=== PATIENT | female | born 1980 | race Caucasian/White ===

== ENCOUNTER 2016-12-23 18:40 | Emergency (ER) | payer BC ==
[2016-12-23] MEDS ORDERED: LORazepam 0.5 MG Tab PO ONE (19:10)
--- NOTE | 2016-12-23 19:16 | EDM.PDOC ---
ED HPI GENERAL MEDICAL PROBLEM - General Chief Complaint: Chest Pain Stated Complaint: anxiety, chest pain Time Seen by Provider: 12/23/16 18:56 Source of Information: Reports: Patient History Limitations: Reports: No Limitations - History of Present Illness INITIAL COMMENTS - FREE TEXT/NARRATIVE: Patient presents with anxiety. She feels like she could go into a panic attack. She has been feeling anxious for the last four days. Three nights ago she had a panic attack. The next day she went to see her PCP and was started on Sertraline. She had been on Sertraline successfully for post- depression previously. She hasn't had a panic attack in about a year but says this is just like back then. She had some chest pain off and on with the anxiety over the past couple days but not now. This does concern her some though as she wonders if she could be having a heart attack. A little nausea but no vomiting; appetite is very decreased with her anxiety. 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 Denies: Fever, Chills HEENT: Reports: No Symptoms Respiratory: Denies: Shortness of Breath, Cough Cardiovascular: Denies: Chest Pain (not currently), Syncope GI/Abdominal: Reports: Nausea. Denies: Abdominal Pain, Vomiting : Denies: Dysuria, Frequency Musculoskeletal: Reports: No Symptoms Skin: Denies: Cyanosis, Jaundice, Mottled, Pallor, Diaphoresis Neurological: Denies: Confusion, Dizziness, Seizure, Syncope, Trouble Speaking, Difficulty Walking Psychiatric: Reports: Anxiety. Denies: Agitation, Confusion ED EXAM, GENERAL - Physical Exam Exam: See Below Exam Limited By: No Limitations General Appearance: Alert, WD/WN, No Apparent Distress Eye Exam: Bilateral Eye: EOMI, Normal Inspection, PERRL Ears: Normal External Exam, Hearing Grossly Normal Nose: Normal Inspection, No Blood Throat/Mouth: Normal Inspection, Normal Lips, Normal Voice, No Airway Compromise Head: Atraumatic, Normocephalic Neck: Normal Inspection, Full Range of Motion Respiratory/Chest: No Respiratory Distress, Lungs Clear, Normal Breath Sounds Cardiovascular: Normal Peripheral Pulses, Regular Rate, Rhythm, No Murmur Peripheral Pulses: 2+: Radial (L), Radial (R), Posterior Tibial (L), Posterior Tibial (R) GI/Abdominal: Normal Bowel Sounds, Soft, Non-Tender, No Organomegaly, No Distention Back Exam: No: CVA Tenderness (L), CVA Tenderness (R) Extremities: Normal Inspection, Normal Range of Motion, No Pedal Edema Neurological: Alert, Oriented, Normal Cognition, No Motor/Sensory Deficits Psychiatric: Normal Affect, Normal Mood, Anxious Skin Exam: Warm, Dry, Intact, Normal Color, No Rash Course - Vital Signs Last Recorded V/S: Last Vital Signs Temp 98.1 F 12/23/16 18:47 Pulse 80 12/23/16 18:47 Resp 15 12/23/16 18:47 BP 130/77 12/23/16 18:47 Pulse Ox 98 12/23/16 18:47 - Orders/Labs/Meds Orders: Active Orders 24 hr Category Date Time Status EKG Documentation Completion [RC] ASDIRECTED Care 12/23/16 18:56 Active BASIC METABOLIC PANEL,BMP [CHEM] Stat Lab 12/23/16 19:00 Received TROPONIN I [CHEM] Stat Lab 12/23/16 19:00 Received EKG 12 Lead [EK] Routine Ther 12/23/16 18:56 Ordered Labs: Laboratory Tests 12/23/16 Range/Units 19:00 WBC 7.4 (5.0-10.0) 10^3/uL RBC 5.12 (3.80-5.50) 10^6/uL Hgb 15.6 (12.0-16.0) g/dL Hct 45.5 (37.0-47.0) % MCV 89.0 (82.0-92.0) fL MCH 30.4 (27.0-31.0) pg MCHC 34.2 (32.0-36.0) g/dL RDW 12.2 (11.5-14.5) % Plt Count 228 (150-300) 10^3/uL MPV 7.8 (7.4-10.4) fL Neut % (Auto) 74.0 H (50.0-70.0) % Lymph % (Auto) 19.5 L (20.0-40.0) % [place] % (Auto) 5.3 (2.0-8.0) % Eos % (Auto) 0.1 L (1.0-3.0) % Baso % (Auto) 1.1 H (0.0-1.0) % Neut # (Auto) 5.5 (2.5-7.0) 10^3/uL Lymph # (Auto) 1.4 (1.0-4.0) 10^3/uL [place] # (Auto) 0.4 (0.1-0.8) 10^3/uL Eos # (Auto) 0.0 L (0.1-0.3) 10^3/uL Baso # (Auto) 0.1 (0.0-0.1) 10^3/uL Meds: Medications Discontinued Medications Generic Name Dose Route Start Last Admin Trade Name Carolina PRN Reason Stop Dose Admin Lorazepam 0.5 mg 12/23/16 19:10 Ativan PO 12/23/16 19:11 ONETIME ONE - Re-Assessments/Exams Free Text/Narrative Re-Assessment/Exam: 12/23/16 19:19 EKG is normal. CBC is normal. Patient hasn't used Xanax for a year. I discussed treatment options and recommended trying Lorazepam which she is agreeable to right now. 12/23/16 20:17 Patient is feeling much better. The labs are normal but there were some problems on the usual machine so they were run on the back-up machine and are not in the chart yet. BMP is normal and troponin 0.00. Discussed findings and treatment plan with patient. Pt discharge in stable condition. Departure - Departure Time of Disposition: 20:10 Disposition: Home, Self-Care 01 Condition: Good Clinical Impression: Anxiety - Discharge Information Forms: ED Department Discharge Additional Instructions: 1. Continue your Sertraline as directed. 2. Take the Ativan (Lorazepam) as directed if needed for anxiety or a panic attack. 3. Talk with your PCP in next few days about your Sertraline dose and whether having Lorazepam available for episodes of anxiety or panic attacks is a good option for you. 4. Return to ER as needed. - My Orders Last 24 Hours: My Active Orders 12/23/16 18:56 EKG Documentation Completion [RC] ASDIRECTED EKG 12 Lead [EK] Routine 12/23/16 19:00 BASIC METABOLIC PANEL,BMP [CHEM] Stat TROPONIN I [CHEM] Stat - Assessment/Plan Last 24 Hours: My Active Orders 12/23/16 18:56 EKG Documentation Completion [RC] ASDIRECTED EKG 12 Lead [EK] Routine 12/23/16 19:00 BASIC METABOLIC PANEL,BMP [CHEM] Stat TROPONIN I [CHEM] Stat
[2016-12-23] MEDS ORDERED: LORazepam 0.5 MG Tab PO PRN (20:16)
[2016-12-23 20:52] VITALS: BP 115/66
[2016-12-23 21:01] LABS: CHLORIDE,CL 103 mmol/L (98-115); SODIUM,NA 138 mmol/L (136-145)
== END 2016-12-23 20:30 | disposition home or self-care (01) ==
LOC: KA.ED 18:40
DX: F41.9 Anxiety disorder, unspecified (principal); Z79.899 Other long term (current) drug therapy
CPT/HCPCS: 36415; 80048; 84484; 85025; 99285; A9270; 93005

== ENCOUNTER 2016-12-24 14:20 | Emergency (ER) | payer BC ==
[2016-12-24 14:48] VITALS: BP 142/82
[2016-12-24] MEDS ORDERED: Ibuprofen 600 MG Tab PO ONE (14:56)
--- NOTE | 2016-12-24 14:56 | EDM.PDOC ---
<Cyrus Adkins D - Last Filed: 12/24/16 15:46> ED HPI GENERAL MEDICAL PROBLEM - General Chief Complaint: Chest Pain Stated Complaint: CHEST PAIN Time Seen by Provider: 12/24/16 14:47 Source of Information: Reports: Patient History Limitations: Reports: No Limitations - History of Present Illness INITIAL COMMENTS - FREE TEXT/NARRATIVE: Patient presents with chest and right arm pain along with anxiety. She has recently been treating for anxiety and panic attacks with Sertraline for about 4 days and was in ER last evening with similar symptoms. I saw her at that time and she responded to Lorazepam. She says she did well last night and this morning until about noon when she started feeling anxious and pain in right chest and arm. She took a Lorazepam and says now the anxiety is gone and she feels calm but still has the right sided pain. She denies trauma, lifting or anything else that could have caused this. EKG and troponin were negative last night. She went to the [facility] and was sent to the [facility] for a chest xray this morning. When she developed these symptoms they advised her to come to ER. 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 Denies: Fever, Chills, Weakness HEENT: Denies: Throat Pain, Vision Change Respiratory: Denies: Shortness of Breath, Cough Cardiovascular: Reports: Chest Pain. Denies: Lightheadedness, Syncope GI/Abdominal: Denies: Abdominal Pain, Vomiting : Denies: Dysuria Musculoskeletal: Reports: Shoulder Pain, Arm Pain (right). Denies: Neck Pain Skin: Denies: Cyanosis, Jaundice, Mottled, Pallor, Diaphoresis Neurological: Denies: Confusion, Dizziness, Headache, Seizure, Syncope, Trouble Speaking, Difficulty Walking, Weakness Psychiatric: Reports: Anxiety. Denies: Agitation, Confusion ED EXAM, GENERAL - Physical Exam Exam: See Below Exam Limited By: No Limitations General Appearance: Alert, WD/WN, No Apparent Distress Eye Exam: Bilateral Eye: EOMI, Normal Inspection, PERRL Ears: Normal External Exam, Hearing Grossly Normal Nose: Normal Inspection Throat/Mouth: Normal Inspection, Normal Lips, Normal Voice, No Airway Compromise Head: Atraumatic, Normocephalic Neck: Normal Inspection, Full Range of Motion Respiratory/Chest: No Respiratory Distress, Lungs Clear, Normal Breath Sounds, Chest Non-Tender Cardiovascular: Regular Rate, Rhythm, No Edema, No Murmur GI/Abdominal: Normal Bowel Sounds, Soft, Non-Tender, No Organomegaly, No Distention Extremities: Normal Inspection, Normal Range of Motion, Non-Tender (to palpation ). No: Limited Range of Motion, Increased Warmth, Mottled, Pallor, Redness Neurological: Alert, Oriented, Normal Cognition, No Motor/Sensory Deficits Psychiatric: Normal Affect, Normal Mood Skin Exam: Warm, Dry, Intact, Normal Color, No Rash Course - Vital Signs Last Recorded V/S: Last Vital Signs Temp 97.9 F 12/24/16 14:39 Pulse 98 12/24/16 14:39 Resp 16 12/24/16 14:39 BP 142/82 H 12/24/16 14:39 Pulse Ox 98 12/24/16 14:39 - Orders/Labs/Meds Orders: Active Orders 24 hr Category Date Time Status EKG Documentation Completion [RC] ASDIRECTED Care 12/24/16 15:43 Active EKG 12 Lead [EK] Routine Ther 12/24/16 14:35 Ordered Labs: Laboratory Tests 12/24/16 12/24/16 Range/Units 15:05 18:15 Troponin I < 0.04 < 0.04 (0.00-0.070) ng/mL Meds: Medications Discontinued Medications Generic Name Dose Route Start Last Admin Trade Name Carolina PRN Reason Stop Dose Admin Ibuprofen 600 mg 12/24/16 14:56 12/24/16 15:24 Motrin PO 12/24/16 14:57 600 mg ONETIME ONE Administration - Re-Assessments/Exams Free Text/Narrative Re-Assessment/Exam: 12/24/16 15:20 Patient is feeling better but still has some pain in right chest that is non- specific and feels deeper than chest wall. Palpation of the chest wall and ribs doesn't reproduce it. We will try to access the chest xray that was done in [place] a couple hours ago. 12/24/16 16:09 Troponin is <0.04, CXR looks normal. Discussed findings and plan of checking a second troponin at 1830. Discussed this with Rashaun Shaw who will be taking over for this patient now. Patient has remained stable throughout ER course. Departure - Departure Disposition: Home, Self-Care 01 Condition: Good Clinical Impression: Anxiety, Chest pain of unknown etiology Referrals: Martha Pedersen NP [Primary Care Provider] - Forms: ED Department Discharge Additional Instructions: 1. Continue the Sertraline as directed by your PCP. 2. Continue to use the Lorazepam as directed when needed. 3. Follow up with your PCP for recheck in two days. 4. Return to ER as needed. <Shlomo Shaw - Last Filed: 12/24/16 23:24> ED HPI GENERAL MEDICAL PROBLEM - General Source of Information: Reports: Patient History Limitations: Reports: No Limitations Course - Re-Assessments/Exams Free Text/Narrative Re-Assessment/Exam: 12/24/16 23:22 PT AFEBRILE, NONTOXIC APPEARING, VSS. DENIES CP, SOB. SERIAL CARDIAC ENZYMES WITHIN NORMAL LIMITS. WILL D/C WITH INSTRUCTIONS TO F/U WITH PCP AND RETURN TO ER IF SYMPTOMS CONTINUE Departure - Departure Time of Disposition: 18:30 Condition: Good
== END 2016-12-24 19:07 | disposition home or self-care (01) ==
LOC: KA.ED 14:20
DX: F41.9 Anxiety disorder, unspecified (principal); Z79.899 Other long term (current) drug therapy
CPT/HCPCS: 36415; 84484; 99285; A9270; 93005